=== PATIENT | male | born 1990 | race Caucasian/White ===

== ENCOUNTER 2018-02-14 02:52 | Emergency (ER) | payer SELFPAY ==
[~2018-02-14] VITALS: Ht 180.3 cm; Wt 88.0 kg
[2018-02-14 02:55] VITALS: BP 146/82; PULSE 82; RESP 20; TEMP 97.6; O2SAT 93; O2SAT 96
[2018-02-14] MEDS ORDERED: FAMOTIDINE 20 MG TAB PO ONE (04:00)
[2018-02-14] MEDS ORDERED: SODIUM CHLOR 0.9% 1000 ML INJ 1,000 ML IV ONE (04:00)
[2018-02-14] MEDS ORDERED: methylPREDNISolone SOD SUCC 125 MG/2 ML VIAL IV PUSH ONE (04:00)
[2018-02-14] MEDS ORDERED: diphenhydrAMINE HCL 50 MG CAP PO ONE (04:00)
[2018-02-14] MEDS ORDERED: EPIP0.3I IM (05:50)
[2018-02-14] MEDS ORDERED: FAMO1TAB73 PO (05:50)
[2018-02-14] MEDS ORDERED: PRED20 PO (05:52)
--- NOTE | 2018-02-14 05:55 | PD ---
HPI Chief Complaint: Allergic/Adverse Reaction Time Seen by Provider: 03:54 Travel History International Travel<30 days: No Contact w/Intl Traveler<30days: No Traveled to known affect area: No History of Present Illness HPI 27-year-old male with allergic reaction. Patient is covered with hives but he is unsure if it is a contact or food related allergy. He has no known allergies. No prior episodes PFSH Past Medical History Medical History: Denies Significant Hx Tetanus Vaccination: Unknown Influenza Vaccination: No Past Surgical History Surgical History: No Previous Surgery Social History Alcohol Use: Yes (occas) Tobacco Use: No Substance Use: No Allergies-Medications (Allergen,Severity, Reaction): Coded Allergies: No Known Allergies (Unverified , 02/14/18) Reported Meds & Prescriptions Reported Meds & Active Scripts Active No Active Prescriptions or Reported Medications Review of Systems Except as stated in HPI: all other systems reviewed are Neg Skin: Positive Rash Physical Exam Narrative GENERAL: 27-year-old male in mild distress secondary to allergic reaction SKIN: Urticaria global HEAD: Atraumatic. Normocephalic. EYES: Pupils equal and round. No scleral icterus. No injection or drainage. ENT: No nasal bleeding or discharge. Mucous membranes pink and moist. NECK: Trachea midline. No JVD. CARDIOVASCULAR: Regular rate and rhythm. No murmur appreciated. RESPIRATORY: No accessory muscle use. Clear to auscultation. Breath sounds equal bilaterally. GASTROINTESTINAL: Abdomen soft, non-tender, nondistended. Hepatic and splenic margins not palpable. Data Data Last Documented VS Vital Signs Date Time Temp Pulse Resp B/P (MAP) Pulse Ox O2 Delivery O2 Flow Rate FiO2 02/14/18 02:55 97.6 82 20 146/82 (103) 93 Orders Orders Methylprednisolone So Succ Inj (Solumedr (02/14/18 04:00) Famotidine (Pepcid) (02/14/18 04:00) Diphenhydramine (Benadryl) (02/14/18 04:00) Sodium Chlor 0.9% 1000 Ml Inj (Ns 1000 M (02/14/18 04:00) MDM Medical Decision Making Medical Screen Exam Complete: Yes Emergency Medical Condition: Yes Differential Diagnosis allergic reaction Narrative Course Patient is a 27-year-old male who had an allergic reaction to unknown substance. He is resolved significantly with treatment in the ER Diagnosis Primary Impression: Allergic reaction Qualified Codes: T78.40XA - Allergy, unspecified, initial encounter Patient Instructions: General Allergic Reaction (ED), General Instructions Med/Other Pt SpecificInfo: Prescription(s) given Scripts Prednisone (Prednisone) 20 Mg Tab 20 MG PO DAILY for 5 Days, #5 TAB 0 Refills Prov: Jesus Pantoja DO 02/14/18 Famotidine (Pepcid) 40 Mg Tab 40 MG PO HS, #7 TAB 0 Refills Prov: Jesus Pantoja DO 02/14/18 Epinephrine Inj (Epipen 2-Agustín Inj) 0.3 Mg/0.3 Ml Pfpen 0.3 MG IM ONCE Y for ALLERGIC REACTION, #1 PACK 0 Refills Prov: Jesus Pantoja DO 02/14/18 Disposition: 01 DISCHARGE HOME Condition: Good Jesus Pantoja DO Feb 14, 2018 05:55
== END 2018-02-14 06:07 | disposition home or self-care (01) ==
LOC: NEPC 02:52
DX: T78.40XA Allergy, unspecified, initial encounter (principal)
CPT/HCPCS: 96361; 96374; 99284; J2930; J7030; Q0163